=== PATIENT | male | born 1965 | race Caucasian/White ===

== ENCOUNTER 2019-12-28 15:49 | Emergency (ER) | payer OTHER, SELFPAY ==
--- NOTE | ~2019-12-28 | XR_ITS ---
XR knee LT 3V DATE: 12/28/2019 16:16 INDICATION: Left knee pain, swelling, redness, warmth to touch TECHNIQUE: 3 views including crosstable lateral COMPARISON: None FINDINGS: There is prepatellar soft tissue swelling. No fracture or dislocation or joint effusion is evident. No periosteal reaction or bone destruction, radiopaque intra-articular loose body or chondrocalcinosis. There is mild loss of height of medial co mpartment joint space. IMPRESSION: Nonspecific prepatellar soft tissue swelling Reviewed, dictated and finalized at location A.
[2019-12-28 15:57] VITALS: BP 123/62; PULSE 90; RESP 16; TEMP 37.4; O2SAT 96
--- NOTE | 2019-12-28 16:06 | ED.GENADULT ---
HPI - General Adult General Chief complaint: Extremity Injury, Lower <Caleb Rios PA-C - Last Filed: 12/28/19 18:48> Stated complaint: Left Knee Pain <Caleb Rios PA-C - Last Filed: 12/28/19 18:48> Time Seen by Provider: 12/28/19 15:57 <Caleb Rios PA-C - Last Filed: 12/28/19 18:48> Source: patient <MARAINA Johnson Last Filed: 12/28/19 18:48> Mode of arrival: ambulatory <Caleb Rios PA-C - Last Filed: 12/28/19 18:48> Limitations: no limitations <Caleb Rios PA-C - Last Filed: 12/28/19 18:48> History of Present Illness HPI narrative: Patient is a 54-year-old male who presents to emergency department for evaluation of anterior left knee pain noting moderate aching pain with redness and tenderness patient was working yesterday on his knees. Patient denies similar occurrence in the past or any fever chills nausea vomiting weakness and on arrival is in the room in no distress <Caleb Rios PA-C - Last Filed: 12/28/19 18:48> Related Data Home medications: Home Medications Medication Instructions Recorded Confirmed albuterol sulfate INHALATION 12/28/19 amiodarone 12/28/19 aspirin 12/28/19 atorvastatin 12/28/19 carvedilol 12/28/19 fluticasone propion-salmeterol inh INHALATION 12/28/19 12/28/19 lisinopril 12/28/19 <Caleb Rios PA-C - Last Filed: 12/28/19 18:48> Allergies/adverse reactions: Allergies Allergy/AdvReac Type Severity Reaction Status Date / Time tramadol AdvReac Intermediate NAUSEA Verified 12/28/19 16:03 <Caleb Rios PA-C - Last Filed: 12/28/19 18:48> Review of Systems Review of Systems: All systems reviewed & are unremarkable except as noted in HPI and below <Caleb Rios PA-C - Last Filed: 12/28/19 18:48> PMFSH Past Medical History Medical History: Medical History (Updated 12/28/19 @ 18:46 by Caleb Rios PA-C) Gastroesophageal reflux disease Hypertension Warfarin anticoagulation <Caleb Rios PA-C - Last Filed: 12/28/19 18:48> Social History Social History: Social History Smoking status: Light tobacco smoker <Caleb Rios PA-C - Last Filed: 12/28/19 18:48> Exam Narrative: Exam Narrative: GENERAL: Well-appearing, well-nourished, and in no acute distress. HEAD: Normocephalic, atraumatic. EYES: PERRLA and EOMI. ENT: Nares clear, no rhinorrhea or epistaxis. Mucous membranes moist. EXTREMITIES: Normal range of motion. No edema. Slight erythema and swelling over the anterior left knee over the patella consistent with bursitis no lymphangitic streaking no circumferential swelling SKIN: Warm, dry, no rash. NEURO: No focal deficits. Alert and oriented x3. Neurovascularly intact. Capillary refill less than 2 seconds PSYCH: Normal mood and affect. <Caleb Rios PA-C - Last Filed: 12/28/19 18:48> Course Consultations Consultation #1: Discussed case with orthopedic surgeon Dr. Mcmillan who notes that the patient can follow with primary care and that if his condition worsens he can follow based on primary care referral Attempt was made to contact primary care Jaimie Cuenca who did not return call <Caleb Rios PA-C - Last Filed: 12/28/19 18:48> Date: 12/28/19 <Caleb Rios PA-C - Last Filed: 12/28/19 18:48> Time: 18:45 <MARIANA Johnson Last Filed: 12/28/19 18:48> Vital Signs Vital signs: Vital Signs Temperature 37.4 C 12/28/19 15:57 Pulse Rate 90 12/28/19 15:57 Respiratory Rate 16 12/28/19 15:57 Blood Pressure 123/62 12/28/19 15:57 Pulse Oximetry 96 12/28/19 15:57 Temperature 37.4 C 12/28/19 15:57 Pulse Rate 75 12/28/19 18:35 Respiratory Rate 15 12/28/19 18:35 Blood Pressure 147/85 H 12/28/19 18:35 Pulse Oximetry 100 12/28/19 18:35 <Caleb Rios PA-C - Last Filed: 12/28/19 18:48>
[2019-12-28 16:34] LABS: Basophils Percent Auto 0.4 % (0.2-1.2); Eosinophils Absolute Auto 0.3 K/mm3 (0-0.3); Eosinophils Percent Auto 3.5 % (0-4.4); Hematocrit 42.8 % (42.0-52.0); Hemoglobin 13.9 g/dL (14.0-18.0); Immature Granulocyte Absolute 0.01 K/mm3 (0.00-0.031); Immature Granulocyte Percent A 0.1 % (0-0.5); Lymphocytes Absolute Auto 2.08 K/mm3 (0.9-3.2); Lymphocytes Percent Auto 26.3 % (18.3-44.2); Mean Corpuscular HGB Conc 32.5 g/dl (32-36); Mean Corpuscular Hemoglobin 28.7 pg (26-34); Mean Corpuscular Volume 88.4 fl (80-100); Mean Platelet Volume 10.3 fl (7.4-10.4); Monocytes Absolute Auto 0.9 K/mm3 (0.1-0.6); Monocytes Percent Auto 11.6 % (2.6-8.5); Neutrophils Absolute Auto 4.6 K/mm3 (1.3-6.7); Neutrophils Percent Auto 58.1 % (45.5-73.1); Platelet Count Result 158 k/mm3 (150-375); Red Blood Count 4.84 M/mm3 (4.6-6.20); White Blood Count 7.9 K/mm3 (4.5-10.0)
[2019-12-28 16:43] LABS: INR 1.8; Prothrombin Time 20.3 Seconds (11.1-14.7)
[2019-12-28 16:55] LABS: Blood Urea Nitrogen 19 mg/dL (9-20); CRP < 0.5 mg/dL (<1.0); Calcium 8.9 mg/dL (8.4-10.2); Carbon Dioxide 24 mmol/L (22-30); Chloride 106 mmol/L (98-107); Estimated CRCL calculation 103 ml/min; Estimated Glomerular Filt Rate > 60; Glucose 110 mg/dL (75-110); Potassium 4.3 mmol/L (3.4-5.0); Sodium 137 mmol/L (137-145); Uric Acid 5.9 mg/dL (3.5-8.5)
[2019-12-28 17:20] LABS: Erythrocyte Sedimentation Rate 6 mm/hr (0-20)
[2019-12-28 18:35] VITALS: BP 147/85; PULSE 75; RESP 15; O2SAT 100
== END 2019-12-28 18:59 | disposition home or self-care (01) ==
PROVIDERS: Emergency Medicine Emergency Medical Services; Emergency Provider Emergency Medicine; PCP Family Medicine
DX: M70.52 Other bursitis of knee, left knee (principal); K21.9 Gastro-esophageal reflux disease without esophagitis; I10 Essential (primary) hypertension; Z79.01 Long term (current) use of anticoagulants; F17.200 Nicotine dependence, unspecified, uncomplicated
CPT/HCPCS: 36415; 73562; 80048; 84550; 85025; 85610; 85652; 86140; 96372; 99283; J1100

== ENCOUNTER 2020-01-15 09:59 | Outpatient (RCR) | payer OTHER, SELFPAY ==
--- NOTE | 2020-01-15 11:15 | PTOPEVAL ---
PHYSICAL THERAPY EVALUATION AND DISCHARGE Thank you for referring Dallas Hussein to [facility]. Please review, sign, date and return this plan of care LAUREN. I agree with and certify that the following plan of care is medically necessary. Referring Physician Date Attending Provider: Arnie Mcmillan MD Evaluation Diagnosis left knee pain Onset 3weeks ago Cause insidious Subjective Information Dallas is here today to learn Query Text:As Reported By Patient/ HEP for left quadriceps Family strengthening. He is experiencing weakness secondary to acute onset left knee bursitis with associated infection. Noted left quadriceps atrophy. Notes that over the last 3 weeks it has healed well. There is only pain when kneeling on the knee. It does start to feel tight when using his legs alot - rising from the floor, stair climbing. Pain Score Pain Score 0: Self Report Lower Extremity Range of Motion General Lower Extremity Range of Motion Reason Not Measured WNL/Left,WNL/Right Lower Extremity Muscle Strength Testing Hip Strength Left Hip Flexion Strength 5 Normal Hip Extension Strength 5 Normal Hip Abduction Strength 5 Normal Hip Adduction Strength 5 Normal Hip Medial Rotation Strength 5 Normal Knee Strength Left Knee Flexion Strength 5 Normal Knee Extension Strength 5 Normal Knee Strength Comments single leg squat: 75% of squat compared to right side; leg press: bilateral = 130# [id number] for HEP, unilateral [id number] for HEP Palpation non tender over mark surfaces : patella, femoral condyles, tibial tuberosity; reported mild discomfort when testing quad length in prone PT Clinical Summary provided patient with following HEP to be performed daily 1. quad set [id number] 10reps x2 2. short arc quad x10x2 -using up to 3# ankle weight as needed 3. SLR x10x2 4. bridges x10x2 5. single leg squatprogressi
== END 2020-01-15 14:41 | disposition home or self-care (01) ==
LOC: ANHPT 09:59
PROVIDERS: PCP Family Medicine; Visit Provider Orthopaedic Surgery
DX: M70.42 Prepatellar bursitis, left knee (principal)
CPT/HCPCS: 97161

== ENCOUNTER 2020-01-22 14:31 | Outpatient (RCR) | payer OTHER, SELFPAY ==
[2019-11-06 14:53] LABS: INR 1.7; Prothrombin Time 19.2 Seconds (11.1-14.7)
[2019-11-15 14:17] LABS: INR 2.4; Prothrombin Time 25.3 Seconds (11.1-14.7)
[2019-12-12 15:37] LABS: INR 2.6; Prothrombin Time 27.5 Seconds (11.1-14.7)
[2020-01-08 11:57] LABS: INR 1.5; Prothrombin Time 17.5 Seconds (11.1-14.7)
[2020-01-11 11:04] LABS: INR 1.1; Prothrombin Time 14.3 Seconds (11.1-14.7)
[2020-01-22 15:04] LABS: INR 1.8; Prothrombin Time 20.2 Seconds (11.1-14.7)
== END 2020-02-04 23:59 | disposition home or self-care (01) ==
LOC: ANHLAB 14:31
PROVIDERS: PCP Family Medicine; Visit Provider Internal Medicine Cardiovascular Disease
DX: I48.92 Unspecified atrial flutter (principal); Z79.01 Long term (current) use of anticoagulants
CPT/HCPCS: 36415; 85610

== ENCOUNTER 2020-04-16 16:12 | Outpatient (RCR) | payer OTHER, SELFPAY ==
[2020-02-21 11:10] LABS: INR 1.6
[2020-03-15 12:40] LABS: INR 2.8; Prothrombin Time 28.7 Seconds (11.1-14.7)
[2020-04-16 17:37] LABS: INR 1.6; Prothrombin Time 18.5 Seconds (11.1-14.7)
== END 2020-05-21 23:59 | disposition home or self-care (01) ==
LOC: ANHLAB 16:12
PROVIDERS: PCP Family Medicine; Visit Provider Internal Medicine Cardiovascular Disease
DX: Z51.81 Encounter for therapeutic drug level monitoring (principal); I48.92 Unspecified atrial flutter; Z79.01 Long term (current) use of anticoagulants
CPT/HCPCS: 36415; 85610

== ENCOUNTER 2020-08-15 06:31 | Outpatient (NON) | payer OTHER, SELFPAY ==
[2020-08-16 20:08] LABS: SARS-CoV-2 RNA PCR Negative
== END 2020-08-15 06:32 ==
LOC: ANHCOVIDDT 06:32
PROVIDERS: PCP Family Medicine; Visit Provider Family Medicine
DX: R68.89 Other general symptoms and signs (principal); Z20.828 Contact with and (suspected) exposure to other viral communicable diseases
CPT/HCPCS: C9803; U0003

== ENCOUNTER 2021-01-07 07:09 | Outpatient (CLI) | payer OTHER, SELFPAY ==
[2021-01-07 07:33] LABS: Basophils Percent Auto 0.3 % (0.2-1.2); Eosinophils Absolute Auto 0.3 K/mm3 (0-0.3); Eosinophils Percent Auto 4.1 % (0-4.4); Hemoglobin 14.2 g/dL (14.0-18.0); Immature Granulocyte Absolute 0.02 K/mm3 (0.00-0.031); Immature Granulocyte Percent A 0.3 % (0-0.5); Lymphocytes Absolute Auto 3.05 K/mm3 (0.9-3.2); Lymphocytes Percent Auto 40.5 % (18.3-44.2); Mean Corpuscular HGB Conc 32.3 g/dl (32-36); Mean Corpuscular Hemoglobin 28.8 pg (26-34); Mean Corpuscular Volume 89.2 fl (80-100); Mean Platelet Volume 9.6 fl (7.4-10.4); Monocytes Absolute Auto 0.9 K/mm3 (0.1-0.6); Monocytes Percent Auto 11.9 % (2.6-8.5); Neutrophils Absolute Auto 3.2 K/mm3 (1.3-6.7); Neutrophils Percent Auto 42.9 % (45.5-73.1); Platelet Count Result 192 k/mm3 (150-375); Red Blood Count 4.93 M/mm3 (4.6-6.20); Red Cell Distribution Width 13.7 % (11.5-14.5); White Blood Count 7.5 K/mm3 (4.5-10.0)
[2021-01-07 07:46] LABS: Alanine Aminotransferase 20 U/L (4-50); Albumin Level 4.2 g/dL (3.5-5.1); Alkaline Phosphatase 48 U/L (38-126); Anion Gap 5 mmol/L (8-16); Aspartate Amino Transferase 27 U/L (17-59); Bilirubin,Total 0.7 mg/dL (0.2-1.3); Blood Urea Nitrogen 19 mg/dL (9-20); Calcium 9.4 mg/dL (8.4-10.2); Carbon Dioxide 31 mmol/L (22-30); Chloride 102 mmol/L (98-107); Cholesterol 92 mg/dL (0-200); Estimated Glomerular Filt Rate > 60; Glucose 95 mg/dL (75-110); HDL Direct 37 mg/dL; Potassium 4.2 mmol/L (3.4-5.0); Sodium 138 mmol/L (137-145); Triglycerides 90 mg/dL (<150)
[2021-01-07 07:57] LABS: LDL Cholesterol Direct 31 mg/dL
[2021-01-07 08:17] LABS: Prostate Specific Antigen 0.9 ng/mL (< OR = 4.0)
== END 2021-01-07 07:10 | disposition home or self-care (01) ==
LOC: ANHLAB 07:15
PROVIDERS: PCP Family Medicine; Visit Provider Physician Assistant
DX: Z76.89 Persons encountering health services in other specified circumstances (principal); J45.21 Mild intermittent asthma with (acute) exacerbation; I48.91 Unspecified atrial fibrillation
CPT/HCPCS: 36415; 80053; 80061; 84153; 84443; 85025

== ENCOUNTER 2021-08-11 09:04 | Outpatient (CLI) | payer OTHER, SELFPAY ==
[2021-08-11 09:29] LABS: Basophils Percent Auto 0.3 % (0.2-1.2); Eosinophils Absolute Auto 0.3 K/mm3 (0-0.3); Eosinophils Percent Auto 4.2 % (0-4.4); Hematocrit 46.4 % (42.0-52.0); Hemoglobin 15.2 g/dL (14.0-18.0); Immature Granulocyte Absolute 0.01 K/mm3 (0.00-0.031); Immature Granulocyte Percent A 0.1 % (0-0.5); Lymphocytes Absolute Auto 2.44 K/mm3 (0.9-3.2); Lymphocytes Percent Auto 35.7 % (18.3-44.2); Mean Corpuscular HGB Conc 32.8 g/dl (32-36); Mean Corpuscular Hemoglobin 28.8 pg (26-34); Mean Platelet Volume 9.7 fl (7.4-10.4); Monocytes Absolute Auto 0.8 K/mm3 (0.1-0.6); Neutrophils Absolute Auto 3.3 K/mm3 (1.3-6.7); Neutrophils Percent Auto 48.7 % (45.5-73.1); Platelet Count Result 175 k/mm3 (150-375); Red Blood Count 5.27 M/mm3 (4.6-6.20); Red Cell Distribution Width 13.7 % (11.5-14.5); White Blood Count 6.8 K/mm3 (4.5-10.0)
[2021-08-11 09:38] LABS: Alanine Aminotransferase 26 U/L (4-50); Albumin Level 4.2 g/dL (3.5-5.1); Alkaline Phosphatase 55 U/L (38-126); Anion Gap 6 mmol/L (8-16); Aspartate Amino Transferase 34 U/L (17-59); Bilirubin,Total 0.6 mg/dL (0.2-1.3); Blood Urea Nitrogen 20 mg/dL (9-20); Calcium 9.4 mg/dL (8.4-10.2); Carbon Dioxide 27 mmol/L (22-30); Chloride 103 mmol/L (98-107); Cholesterol 109 mg/dL (0-200); Estimated Glomerular Filt Rate > 60; Glucose 102 mg/dL (65-110); HDL Direct 36 mg/dL; Potassium 4.4 mmol/L (3.4-5.0); Sodium 136 mmol/L (137-145); Triglycerides 87 mg/dL (<150)
[2021-08-11 09:49] LABS: LDL Cholesterol Direct 46 mg/dL
== END 2021-08-11 09:05 | disposition home or self-care (01) ==
PROVIDERS: PCP Family Medicine; Visit Provider Physician Assistant
DX: E78.5 Hyperlipidemia, unspecified (principal); K21.9 Gastro-esophageal reflux disease without esophagitis
CPT/HCPCS: 36415; 80053; 80061; 85025

== ENCOUNTER 2022-07-14 15:36 | Emergency (ER) | payer OTHER, SELFPAY ==
[2022-07-14 15:42] VITALS: BP 126/83; PULSE 81; RESP 20; TEMP 37.4; O2SAT 97
--- NOTE | 2022-07-14 17:30 | ED.URI ---
HPI - URI/Sore Throat General Chief Complaint: Upper Respiratory Infection Stated Complaint: uri Time Seen by Provider: 07/14/22 17:25 Source: patient, RN notes reviewed and old records reviewed Mode of arrival: ambulatory Limitations: no limitations History of Present Illness HPI Narrative: 56 YEAR OLD MALE RESENTS TO [facility] with complaints of 2 day history of cough and body aches with some low grade fevers and complaints of eyes hurting. Patient reports that he has taken Vicks cough and cold and NyQuil for his symptoms and reports tht he has taken some Ibuprofen. Patient reports that he has not had flu shot. Patient is on Warfarin therapy. MD elicited complaint: cough and other (bodyaches, eyes hurt) Pertinent past history: asthma and other (On Warfarin) Onset (ago): day(s) (2) Pain scale (0-10): 8 Able to tolerate fluids by mouth: Yes Treatments prior to arrival: cold medicine and other (NyQuil) Related Data Home Medications Medication Instructions Recorded Confirmed albuterol sulfate 90 mcg/actuation 1 inh inhalation DIRECTED 12/28/19 07/14/22 aerosol inhaler aspirin 81 mg tablet,delayed 81 mg DAILY 12/28/19 07/14/22 release atorvastatin 20 mg tablet 20 mg DAILY 12/28/19 07/14/22 carvedilol 12.5 mg tablet 12.5 mg DAILY 12/28/19 07/14/22 fluticasone 232 mcg-salmeterol 14 1 inh inhalation DIRECTED 12/28/19 07/14/22 mcg/actuation breath activated powdr lisinopril 2.5 mg tablet 2.5 mg DAILY 12/28/19 07/14/22 Allergies Allergy/AdvReac Type Severity Reaction Status Date / Time tramadol AdvReac Intermediate NAUSEA Verified 07/14/22 15:54 Review of Systems Review of Systems: CONSTITUTIONAL: Reports malaise, chills, sweats, or fever. EYES: Denies visual changes, redness, or discharge, states eyes hurt ENT: Reports rhinorrhea, congestion, sinus pain, no otalgia and sore throat. CARDIOVASCULAR: Denies chest pain, palpitations, or edema. RESPIRATORY: Reports cough.? Denies dyspnea. GASTROINTESTINAL: Denies abdominal pain, nausea, vomiting, diarrhea SKIN: Denies rash or itching. MUSCULOSKELETAL:Reports myalgia. NEUROLOGIC: Denies headache. All systems reviewed & are unremarkable except as noted in HPI and below PMFSH Past Medical History Medical History Gastroesophageal reflux disease History of abdominal hernia History of asthma Hypertension Prepatellar bursitis of left knee Warfarin anticoagulation Surgical History Surgical History History of back surgery History of elbow surgery History of heart surgery History of hernia repair Family History Family History Unknown Heart disease Lung disease Cancer Social History Social History Smoking status: Former smoker Alcohol intake: current Substance use: never Comments At time of signature, agree with nursing past medical, surgical, social and family history. There is no relevant family history pertinent to the presenting complaint Exam Narrative: GENERAL: Well-appearing, well-nourished, and in no acute distress. HEAD: Normocephalic EYES: PERRLA, conjunctivae clear, no drainage noted or visual changes states reports eyes hurt denies sharp pain ENT: Nares clear, turbinates edematous and erythematous, clear discharge. Mucous membranes moist. TM pearly chase with dull light reflex bilaterally; no tragal tenderness. Oropharynx erythematous without lesions. Tonsils not enlarged and without exudate, no drooling, no hoarseness, no trismus, uvula midline.Post nasal discharge noted NECK: Supple. No lymphadenopathy CHEST: occasional wheeze right lung field left clear, breath sounds equal. wheezing,no rhonchi, rales, or stridor. No respiratory distress, speaks in full sentences.harsh cough. SAO2 97% on r
== END 2022-07-14 17:50 | disposition home or self-care (01) ==
PROVIDERS: Emergency Provider Registered Nurse
DX: J10.1 Influenza due to other identified influenza virus with other respiratory manifestations (principal); Z20.822 Contact with and (suspected) exposure to COVID-19; Z87.891 Personal history of nicotine dependence; K21.9 Gastro-esophageal reflux disease without esophagitis; J45.909 Unspecified asthma, uncomplicated; I10 Essential (primary) hypertension; Z79.82 Long term (current) use of aspirin
CPT/HCPCS: 87426; 87804; 99213; C9803; G0463

== ENCOUNTER 2022-09-23 11:11 | Outpatient (CLI) | payer OTHER, SELFPAY ==
[2022-09-23 12:16] LABS: Alanine Aminotransferase 34 U/L (6-50); Albumin Level 4.2 g/dL (3.5-5.1); Alkaline Phosphatase 47 U/L (38-126); Anion Gap 3 mmol/L (8-16); Aspartate Amino Transferase 36 U/L (17-59); Bilirubin,Total 0.8 mg/dL (0.2-1.3); Blood Urea Nitrogen 18 mg/dL (9-20); Calcium 8.6 mg/dL (8.4-10.2); Carbon Dioxide 30 mmol/L (22-30); Chloride 105 mmol/L (98-107); Cholesterol 118 mg/dL (0-200); Estimated Glomerular Filt Rate > 60; Glucose 76 mg/dL (65-110); HDL Direct 36 mg/dL; Potassium 4.1 mmol/L (3.4-5.0); Sodium 138 mmol/L (137-145); Triglycerides 98 mg/dL (<150)
[2022-09-23 12:27] LABS: LDL Cholesterol Direct 50 mg/dL
[2022-09-23 12:45] LABS: Prostate Specific Antigen 0.9 ng/mL (< OR = 4.0)
== END 2022-09-23 11:12 | disposition home or self-care (01) ==
PROVIDERS: Visit Provider Physician Assistant
DX: I10 Essential (primary) hypertension (principal); Z12.5 Encounter for screening for malignant neoplasm of prostate; E78.2 Mixed hyperlipidemia
CPT/HCPCS: 36415; 80053; 80061; 84153; G0103

== ENCOUNTER 2023-04-22 03:18 | Day surgery (SDC) | payer OTHER, SELFPAY ==
[2023-04-08 13:54] VITALS: BMI 33.3
[2023-04-22 08:15] VITALS: BP 133/81; PULSE 57; RESP 20; TEMP 36.5; O2SAT 97; BMI 32.2
[2023-04-22] MEDS: LACTATED RINGERS 1,000 ML 150 ML IV CONT (08:18)
--- NOTE | 2023-04-22 08:30 | PM.HPGS ---
History of Present Illness History of Present Illness Consent: Risks, benefits, and alternatives have been discussed and questions answered. Patient agrees to proceed with procedure. Chief complaint: neoplasm screening Narrative: Dallas Hussein is a 57 year old male Presents for screening colonoscopy. Patient's current weight appetite and bowel movements are normal. Patient denies abdominal pain. He has had no bleeding. Family history noncontributory. Previous colonoscopy 2011 revealed a benign adenoma. Patient states he did have an endoscopy in the past for GE reflux disease. He states this is stable currently has no heartburn. Review of Systems Review of Systems: Review of systems noncontributory. [facility] Past Medical History Medical History Gastroesophageal reflux disease History of abdominal hernia History of asthma Hypertension Prepatellar bursitis of left knee Warfarin anticoagulation Surgical History Surgical History History of back surgery History of elbow surgery History of heart surgery History of hernia repair Family History Family History Unknown Heart disease Lung disease Cancer Social History Social History Smoking status: Former smoker Tobacco type: cigarettes Alcohol intake: current Alcohol use details: occasional Substance use: never Substance use type: does not use Living arrangements: with family Spiritual care concerns: No Meds Home Medications and Allergies Home Medications Medication Instructions Recorded Confirmed Type albuterol sulfate 90 mcg/actuation 1 inh inhalation DIRECTED 12/28/19 04/08/23 History aerosol inhaler aspirin 81 mg tablet,delayed 81 mg DAILY 12/28/19 04/08/23 History release atorvastatin 20 mg tablet 20 mg DAILY 12/28/19 04/08/23 History fluticasone 232 mcg-salmeterol 14 1 inh inhalation DIRECTED 12/28/19 04/08/23 History mcg/actuation breath activated powdr lisinopril 2.5 mg tablet 2.5 mg DAILY 12/28/19 04/08/23 History pantoprazole 20 mg tablet,delayed 20 mg PO BID 04/08/23 04/08/23 History release sodium,potassium,mag sulfates 17.5 See Rx Instructions .Route 04/21/23 Rx gram-3.13 gram-1.6 gram oral soln .COMPLEX #354 mL (Suprep Bowel Prep Kit) metoprolol succinate 50 mg mg PO 04/22/23 History tablet,extended release 24 hr Allergies Allergy/AdvReac Type Severity Reaction Status Date / Time tramadol AdvReac Intermediate NAUSEA Verified 04/22/23 08:12 Vital Signs Vital Signs - 24 hr 04/22/23 08:15 Temperature 97.7 F Pulse Rate 57 L Respiratory Rate 20 Blood Pressure 133/81 Pulse Oximetry 97 Oxygen Delivery Room Air Exam Narrative: Physical exam reveals patient to be alert. Vital signs stable. HEENT exam is unremarkable. Patient is anicteric. Lungs are clear to auscultation and percussion. Heart is without murmur or extra sounds. Abdomen bowel sounds are present soft nontender with no organomegaly. Digital external rectal exam normal. Assessment and Plan Assessment and plan (1) Encounter for screening colonoscopy: Code(s): Z12.11 - Encounter for screening for malignant neoplasm of colon Status: Acute Assessment and Plan: Patient presents today for screening colonoscopy. He does have a distant history of adenomatous polyp removed from the colon 2011. Further recommendations may be given after endoscopy.
--- NOTE | 2023-04-22 08:30 | WPDANESEPPF ---
Anes - Initial Pre Proc Eval Procedure: Operation Date: 04/22/23 09:00 Proposed Procedures p Screening Colonoscopy - Philip Carroll MD Date/Time: 04/22/23 08:30 Surgeon: Philip Carroll MD Pre Op Diagnosis: neoplasm screening Patient Data Age: 57 Gender: M Height: 1.83 m Weight: 107.9 kg Last Vital Signs Temp 97.7 F 04/22/23 08:15 Pulse 57 L 04/22/23 08:15 Resp 20 04/22/23 08:15 BP 133/81 04/22/23 08:15 Pulse Ox 97 04/22/23 08:15 O2 Del Method Room Air 04/22/23 08:15 Allergies Allergy/AdvReac Type Severity Reaction Status Date / Time tramadol AdvReac Intermediate NAUSEA Verified 04/22/23 08:12 Home Medications Medication Instructions Recorded Confirmed Type albuterol sulfate 90 mcg/actuation 1 inh inhalation DIRECTED 12/28/19 04/08/23 History aerosol inhaler aspirin 81 mg tablet,delayed 81 mg DAILY 12/28/19 04/08/23 History release atorvastatin 20 mg tablet 20 mg DAILY 12/28/19 04/08/23 History fluticasone 232 mcg-salmeterol 14 1 inh inhalation DIRECTED 12/28/19 04/08/23 History mcg/actuation breath activated powdr lisinopril 2.5 mg tablet 2.5 mg DAILY 12/28/19 04/08/23 History pantoprazole 20 mg tablet,delayed 20 mg PO BID 04/08/23 04/08/23 History release sodium,potassium,mag sulfates 17.5 See Rx Instructions .Route 04/21/23 Rx gram-3.13 gram-1.6 gram oral soln .COMPLEX #354 mL (Suprep Bowel Prep Kit) metoprolol succinate 50 mg mg PO 04/22/23 History tablet,extended release 24 hr Patient hx anesthesia problems: none Family hx anesthesia problems: none Results Review: All pre-operative results and documents have been reviewed as part of the pre-operative evaluation. [facility] Past Medical History Medical History Gastroesophageal reflux disease History of abdominal hernia History of asthma Hypertension Prepatellar bursitis of left knee Warfarin anticoagulation Surgical History Surgical History History of back surgery History of elbow surgery History of heart surgery History of hernia repair Family History Family History Unknown Heart disease Lung disease Cancer Social History Social History Smoking status: Former smoker Tobacco type: cigarettes Alcohol intake: current Alcohol use details: occasional Substance use: never Substance use type: does not use Living arrangements: with family Spiritual care concerns: No Anes - Eval Final PreProcedure Day of Procedure 04/22/23 08:30 Patient weight: obese Heart: regular rate and rhythm Lungs: clear to auscultation Airway: Mallampati scale class II Neurological: alert and oriented Last oral intake: >/= 8 hours ASA classification: III Emergent: no Anesthetic plan: proceed Anesthesia type and monitoring: general GIVS and standard monitoring Results Review: All pre-operative results and documents have been reviewed as part of the pre-operative evaluation. Informed Consent: The patient's anesthetic plan and its attendant risks and benefits were discussed with the patient/family/POA. Questions were solicited and answers provided to the satisfaction of the patient/family/POA.
[2023-04-22 09:14] VITALS: BP 109/67; PULSE 54; RESP 20; O2SAT 96
[2023-04-22 09:24] VITALS: BP 124/63; PULSE 54; RESP 20; O2SAT 97
[2023-04-22 09:34] VITALS: BP 121/79; PULSE 51; RESP 20; O2SAT 97
== END 2023-04-22 09:42 | disposition home or self-care (01) ==
PROVIDERS: Visit Provider Internal Medicine Gastroenterology
PROC: 0DJD8ZZ Inspection of Lower Intestinal Tract, Via Natural or Artificial Opening Endoscopic (ICD-10-PCS; CPT 45378; principal; 2023-04-22 09:00)
DX: Z12.11 Encounter for screening for malignant neoplasm of colon (principal); K64.8 Other hemorrhoids; K57.30 Diverticulosis of large intestine without perforation or abscess without bleeding; Z86.010 Personal history of colon polyps; K21.9 Gastro-esophageal reflux disease without esophagitis; I10 Essential (primary) hypertension; J45.909 Unspecified asthma, uncomplicated; Z87.891 Personal history of nicotine dependence; Z79.51 Long term (current) use of inhaled steroids; Z79.82 Long term (current) use of aspirin; E66.9 Obesity, unspecified; Z68.32 Body mass index [BMI] 32.0-32.9, adult
CPT/HCPCS: 45378; J2704; J7120